=== PATIENT | female | born 1990 ===

== ENCOUNTER 2017-04-11 02:53 | Emergency (ER) | payer MEDICAID, OTHER ==
--- NOTE | 2017-04-11 03:00 | ED PDOC ---
HPI: Psych/Substance Abuse Time Seen by Provider: 04/11/17 03:00 Chief Complaint (Provider): crisis eval History Per: Patient Additional Complaint(s): 26 year old female presents to ED for crisis evaluation. She states she is feeling suicidal and her plan would be to overdose on meds. Patient did not take any pills today. She states she has been feeling depressed for 1 year. Patient does not take any meds for depression daily. She admits to occasional use of marijuana but denies any use of any other drugs or alcohol. 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 - Family History Family History: States: No Known Family Hx - Living Arrangements Living Arrangements: With Family - Social History Current smoker - smoking cessation education provided: No Alcohol: None Drugs: Cannabis - Home Medications Home Medications: Ambulatory Orders Medication Instructions Recorded Clindamycin [Cleocin] 300 mg PO QID #40 cap 01/12/15 Naproxen [Naprosyn] 500 mg PO BID PRN #30 tab 03/28/15 - Allergies Allergies/Adverse Reactions: Allergies Allergy/AdvReac Type Severity Reaction Status Date / Time Penicillins Allergy RASH Verified 04/11/17 03:08 Review of Systems ROS Statement: Except As Marked, All Systems Reviewed And Found Negative Constitutional: Negative for: Fever Cardiovascular: Negative for: Chest Pain Respiratory: Negative for: Cough Gastrointestinal: Negative for: Vomiting Psych: Positive for: Depression, Suicidal ideation Physical Exam - Reviewed Nursing Documentation Reviewed: Yes Vital Signs Reviewed: Yes - Physical Exam Appears: Positive for: Well, Non-toxic, No Acute Distress Skin: Negative for: Rash Eye Exam: Positive for: Normal appearance Cardiovascular/Chest: Positive for: Regular Rate, Rhythm Respiratory: Positive for: Normal Breath Sounds. Negative for: Wheezing, Respiratory Distress Gastrointestinal/Abdominal: Positive for: Soft. Negative for: Tenderness Extremity: Positive for: Normal ROM Neurologic/Psych: Positive for: Alert, Oriented - Laboratory Results Result Diagrams: 04/11/17 03:44 04/11/17 03:44 - ECG O2 Sat by Pulse Oximetry: 100 Pulse Ox Interpretation: Normal Medical Decision Making Medical Decision Makin26 year old with depression and suicidal ideation Plan: 1:1 observation Crisis eval CBC CMP BAL UDS UA test CXR As per crisis counselor and psychiatrist lion trainer, Dr. Yee, patient does not meet criteria for admission and is stable for discharge. Patient was provided with appt for follow up in mental health clinic. Disposition - Clinical Impression Clinical Impression: Anxiety - Patient ED Disposition Is Patient to be Admitted: No - Disposition Referrals: Dion Sofia MD [Primary Care Provider] - Disposition: Routine/Home Disposition Time: 04:05 Condition: STABLE Additional Instructions: FOLLOW UP DIRECTED BY CRISIS COUNSELOR. Instructions: Anxiety (ED) Results - Lab Results Lab Results: 04/11/17 04/11/17 04/11/17 03:44 03:44 03:44 WBC 9.3 RBC 4.24 Hgb 12.5 Hct 38.1 MCV 89.9 MCH 29.6 MCHC 32.9 L RDW 13.4 Plt Count 183 Sodium 142 Potassium 3.7 Chloride 109 H Carbon Dioxide 23 Anion Gap 14 BUN 19 H Creatinine 0.9 Est GFR ( Amer) > 60 Est GFR (Non-Af Amer) > 60 Random Glucose 89 Calcium 9.4 Total Bilirubin 0.6 AST 35 ALT 50 Alkaline Phosphatase 66 Total Protein 8.0 Albumin 4.8 Globulin 3.3 Albumin/Globulin Ratio 1.5 Urine Color Yellow Urine Clarity Slighty-cloudy Urine pH 6.0 Ur Specific Hope 1.021 Urine Protein 30 Urine Glucose (UA) Neg Urine Ketones Negative Urine Blood Large Urine Nitrate Negative Urine Bilirubin Negative Urine Urobilinogen 0.2-1.0 Ur Leukocyte Esterase Neg Urine RBC (Auto) 3 Urine Microscopic WBC 1 Ur Squamous Epith Cells 1 Hyaline Casts 0-2 Alcohol, Quantitative < 10
[2017-04-11 03:07] VITALS: BP 104/51; PULSE 64; RESP 16; TEMP 99; O2SAT 100
[2017-04-11 03:49] LABS: HEMOGLOBIN 12.5 g/dL (12.0-16.0); MEAN CELL VOLUME 89.9 fl (81.0-99.0); MEAN CORPUSCULAR HEMOGLOBIN 29.6 pg (27.0-31.0); MEAN CORPUSCULAR HGB CONC 32.9 g/dL (33.0-37.0); RBC 4.24 Mil/uL (3.80-5.20); RED CELL DISTRIBUTION WIDTH 13.4 % (11.5-14.5); WHITE BLOOD COUNT 9.3 K/uL (4.8-10.8)
[2017-04-11 03:53] LABS: SQUAMOUS EPITHIAL 1 /hpf (0-5); URINE BILIRUBIN NEGATIVE (NEGATIVE); URINE BLOOD LARGE (NEGATIVE); URINE CLARITY SLIGHTY-CLOUDY (Clear); URINE COLOR YELLOW (YELLOW); URINE GLUCOSE (UA) NEG (Normal); URINE HYALINE CAST 0-2 /hpf (0-2); URINE LEUKOCYTE ESTERASE NEG Leu/uL (Negative); URINE NITRATE NEGATIVE (NEGATIVE); URINE PROTEIN 30 mg/dL (NEGATIVE); URINE UROBILINOGEN 0.2-1.0 mg/dL (0.2-1.0)
[2017-04-11 03:55] LABS: ALB/GLOB RATIO 1.5 (1.0-2.1); ALBUMIN 4.8 g/dL (3.5-5.0); ALT/SGPT 50 U/L (9-52); AST/SGOT 35 U/L (14-36); BLOOD UREA NITROGEN 19 mg/dl (7-17); CALCIUM 9.4 mg/dL (8.4-10.2); GFR AFRICAN-AMERICAN > 60; GFR NON-AFRICAN AMERICAN > 60
[2017-04-11 04:04] LABS: BARBITURATES, UR NEGATIVE (NEGATIVE); BENZODIAZEPINES, UR NEGATIVE (NEGATIVE); OPIATES, UR NEGATIVE (NEGATIVE); PHENCYCLIDINE, UR NEGATIVE (NEGATIVE)
== END 2017-04-11 04:10 | disposition home or self-care (01) ==
LOC: H.ER 02:53
DX: F41.9 Anxiety disorder, unspecified (principal); R45.851 Suicidal ideations; Z88.0 Allergy status to penicillin

== ENCOUNTER 2018-02-24 23:47 | Emergency (ER) | payer OTHER ==
[2018-02-24 23:52] VITALS: BP 116/74; PULSE 82; RESP 18; TEMP 98.1; O2SAT 100
--- NOTE | 2018-02-25 00:15 | ED PDOC ---
HPI: Abdomen Time Seen by Provider: 02/25/18 00:11 Chief Complaint (Nursing): Abdominal Pain Chief Complaint (Provider): : pelvic cramping History Per: Patient History/Exam Limitations: no limitations Onset/Duration Of Symptoms: Hrs, Waxing/Waning Location Of Pain/Discomfort: RLQ, LLQ, Suprapubic Quality Of Discomfort: Cramping Additional Complaint(s): 27 y/o female, approximately 5 weeks gestation, presents with pelvic cramping x 4 hours. Denies fever, nausea/vomiting, chest pain, shortness of breath, palpitations, vaginal bleeding/discharge, dysuria, hematuria. Abnormal Vaginal Bleeding: No Last Menstral Period: 01/10/18 : 1 Para: 0 Miscarriage: 0 Past Medical History Reviewed: Historical Data, Nursing Documentation, Vital Signs Vital Signs: Last Vital Signs Temp 98.1 F 02/24/18 23:51 Pulse 82 02/24/18 23:51 Resp 18 02/24/18 23:51 BP 116/74 02/24/18 23:51 Pulse Ox 100 02/25/18 01:31 - Medical History PMH: Depression Denies: Asthma, Diabetes, Hepatitis, HIV, HTN, Seizures, Sexually Transmitted Disease - Surgical History Surgical History: No Surg Hx - Family History Family History: States: Unknown Family Hx - Home Medications Home Medications: Ambulatory Orders Medication Instructions Recorded Clindamycin [Cleocin] 300 mg PO QID #40 cap 01/12/15 Naproxen [Naprosyn] 500 mg PO BID PRN #30 tab 03/28/15 - Allergies Allergies/Adverse Reactions: Allergies Allergy/AdvReac Type Severity Reaction Status Date / Time Penicillins Allergy RASH Verified 02/24/18 23:51 Review of Systems ROS Statement: Except As Marked, All Systems Reviewed And Found Negative Genitourinary Female: Positive for: Pelvic Pain Physical Exam - Reviewed Nursing Documentation Reviewed: Yes Vital Signs Reviewed: Yes - Physical Exam Appears: Positive for: Well, Non-toxic, No Acute Distress Head Exam: Positive for: ATRAUMATIC, NORMAL INSPECTION, NORMOCEPHALIC Skin: Positive for: Normal Color Eye Exam: Positive for: Normal appearance ENT: Positive for: Normal ENT Inspection Cardiovascular/Chest: Positive for: Regular Rate, Rhythm Respiratory: Positive for: Normal Breath Sounds Gastrointestinal/Abdominal: Positive for: Bowel Sounds, Soft, Tenderness ( diffuse lower abdomianl discomfort to palpation) Back: Positive for: Normal Inspection Extremity: Positive for: Normal ROM Neurologic/Psych: Positive for: Alert, Oriented - Laboratory Results Result Diagrams: 02/25/18 00:40 02/25/18 00:40 - ECG O2 Sat by Pulse Oximetry: 100 - Progress ED Course And Treament: labs, urine, OB tv u/s EXAM: US , Transvaginal CLINICAL HISTORY: 27 years old, female; Pain; Other: Cramps; Gestational age or lmp: 01/10/18; ; Additional info: 5 wks, pelvic cramping TECHNIQUE: Real-time transvaginal obstetrical ultrasound of the maternal pelvis and a first trimester with image documentation. Transvaginal imaging was used for better evaluation of the fetus and adnexa. COMPARISON: No relevant prior studies available. FINDINGS: Gestation: Gestational sac. Yolk sac. No pole. Mean sac diameter of 1.3 cm , correlating with gestational age of 5 weeks 4 days. Uterus/cervix: No subchorionic hemorrhage. Closed cervix. Ovaries: Normal ovaries. No adnexal masses. Free fluid: No significant free fluid. IMPRESSION: 1. Intrauterine , of uncertain viability. Recommend followup Patient educated on findings, discharged with instructions to follow up with her private [employer] (appt scheduled for next week) Return precautions given. Disposition - Clinical Impression Clinical Impression: Abdominal pain during , Threatened miscarriage - Patient ED Disposition Is Patient to be Admitted: No Counseled Patient/Family Regarding: Studies Performed, Diagnosis, Need For Followup - Disposition Referrals: Dion Sofia MD [Primary Care Provider] - Disposition: Routine/Home Disposition Time: 01:31 Condition: STABLE Instructions: Threatened Miscarriage Forms: Ule (Bengali)
[2018-02-25 00:51] LABS: BASO # 0.1 K/uL (0.0-0.2); BASO % 0.6 % (0.0-2.0); EOS # 0.2 K/uL (0.0-0.7); EOS % 1.5 % (0.0-4.0); HEMOGLOBIN 12.7 g/dL (12.0-16.0); LYMPH # 3.5 K/uL (1.0-4.3); LYMPH % 32.5 % (20.0-40.0); MEAN CELL VOLUME 91.4 fl (81.0-99.0); MEAN CORPUSCULAR HEMOGLOBIN 30.3 pg (27.0-31.0); MEAN CORPUSCULAR HGB CONC 33.1 g/dL (33.0-37.0); MEAN PLATELET VOLUME 9.2 fl (7.2-11.7); MONO # 0.7 K/uL (0.0-0.8); MONO % 6.4 % (0.0-10.0); NEUT # 6.4 K/uL (1.8-7.0); RBC 4.21 Mil/uL (3.80-5.20); RED CELL DISTRIBUTION WIDTH 13.3 % (11.5-14.5); WHITE BLOOD COUNT 10.8 K/uL (4.8-10.8)
[2018-02-25 00:55] LABS: ALB/GLOB RATIO 1.2 (1.0-2.1); ALBUMIN 4.3 g/dL (3.5-5.0); ALT/SGPT 35 U/L (9-52); AST/SGOT 27 U/L (14-36); BLOOD UREA NITROGEN 14 mg/dl (7-17); CALCIUM 9.4 mg/dL (8.4-10.2); GFR AFRICAN-AMERICAN > 60; GFR NON-AFRICAN AMERICAN > 60
--- NOTE | 2018-02-25 01:28 | US ---
EXAM: US , Transvaginal CLINICAL HISTORY: 27 years old, female; Pain; Other: Cramps; Gestational age or lmp: 01/10/18; ; Additional info: 5 wks, pelvic cramping TECHNIQUE: Real-time transvaginal obstetrical ultrasound of the maternal pelvis and a first trimester with image documentation. Transvaginal imaging was used for better evaluation of the fetus and adnexa. COMPARISON: No relevant prior studies available. FINDINGS: Gestation: Gestational sac. Yolk sac. No pole. Mean sac diameter of 1.3 cm, correlating with gestational age of 5 weeks 4 days. Uterus/cervix: No subchorionic hemorrhage. Closed cervix. Ovaries: Normal ovaries. No adnexal masses. Free fluid: No significant free fluid. IMPRESSION: 1. Intrauterine , of uncertain viability. Recommend followup.
== END 2018-02-25 01:53 | disposition home or self-care (01) ==
LOC: H.ER 23:47
DX: O20.0 Threatened abortion (principal); O26.891 Other specified pregnancy related conditions, first trimester; Z3A.01 Less than 8 weeks gestation of pregnancy; Z88.0 Allergy status to penicillin; F32.9 Major depressive disorder, single episode, unspecified